=== PATIENT | male | born 1945 | race Caucasian/White ===

== ENCOUNTER 2016-07-28 12:51 | Inpatient (IN) | payer OTHER ==
[~2016-07-28] VITALS: Ht 167.6 cm; Wt 81.2 kg
--- NOTE | ~2016-07-28 | HC ---
[facility] [place] [address] CONSULTATION Name: CONSTANZASCOTT Dimitry Room #: 308-P [facility] IN ..#: [id number] Admission: 07/28/16 Attend Phys: Laurie Sellers MD Discharge: Date of : 47 Report #: [id number] THIS REPORT FOR: //name// CC: Laurie Seguraromulo Tran DATE OF SERVICE: 07/29/2016 REASON FOR CONSULTATION: Acute kidney injury in this patient with a 20+ year history of diabetes mellitus, hypertension, and acute anemia. HISTORY OF PRESENT ILLNESS: This 71-year-old male reports that he was diagnosed with diabetes mellitus in 1995. His glucose has been relatively easy to control over the years. He has developed subsequent hypertension. He sustained a cerebrovascular accident that recovered virtually completely post event. The patient reports no prior history of known kidney abnormalities. Specifically, he denies gross hematuria, renal insufficiency, nephrolithiasis, or family history of renal disease. PAST MEDICAL HISTORY: Otherwise remarkable for dyslipidemia, hypertension, diabetes, and CVA. MEDICATIONS: On admission include glimepiride 4 mg daily, hydrochlorothiazide 12.5 mg daily, lisinopril 20 mg daily, lovastatin 40 mg daily, metformin b.i.d., and vitamin D 1000 units daily. ALLERGIES: No known drug allergies. FAMILY HISTORY: Remarkable for the absence of diabetes and chronic kidney disease. PERSONAL AND SOCIAL HISTORY: The patient does not smoke, use alcohol, or have any history of substance abuse. REVIEW OF SYSTEMS: Remarkable for the absence of peripheral edema. He denies lightheadedness, vertigo, loss of consciousness, shortness of breath, productive cough, or hemoptysis. He does report that his oral intake has been poor over the last 10 days due to anorexia. He denies nausea, vomiting, diarrhea, or constipation. He denies evidence of GI blood loss. PHYSICAL EXAMINATION: GENERAL: Reveals a well-developed, well-nourished male who is alert and cooperative, in no acute distress. VITAL SIGNS: Temperature 36.8, pulse 85, respirations 16, blood pressure 134/70, and O2 situation 96% on room. [address] [address] CONSULTATION Name: SCOTT APODACA Room #: 308-P [facility] IN .R.#: [id number] Admission: 07/28/16 Attend Phys: Laurie Sellers MD Discharge: Date of : 47 Report #: [id number] SKIN: Warm and dry. There is diminished turgor noted. There is no clubbing, cyanosis, edema, or adenopathy. HEENT: The head is normocephalic and atraumatic. The sclerae are white. The pharynx is benign. NECK: Supple. There is no JVD present. LUNGS: [place] are grossly clear to percussion and auscultation. CARDIOVASCULAR: Reveals a regular rate and rhythm without rub. ABDOMEN: Soft and nontender without palpable mass or organomegaly. NEUROLOGIC: Reveals the patient to be alert and cooperative with a nonfocal examination. LABORATORY STUDIES: Available at this time include sodium 139, potassium 3.2, chloride 105, CO2 of 26, BUN 22, creatinine 2.2, glucose 117, and albumin 2.6. White blood cell count 8100, hemoglobin 8.4, hematocrit 24.3, MCV 79.9, and platelet count 378,000. Urinalysis reveals clear yellow urine, specific gravity 1.010, pH 5.5, trace protein. ASSESSMENT: 1. Acute kidney injury with likely elements of both acute kidney injury secondary to prerenal azotemia and suspected chronic kidney disease due to his 20+ year history of diabetes mellitus. He is responded well to hydration thus far with a serum creatinine on presentation of 2.7 following to a value of 2.2 today. I would continue isotonic hydration with potassium supplementation. Renal ultrasound has been ordered. For purposes of completeness, serologic studies including FAUSTO, ANCA and serum free light chains will be obtained. 2. Diabetes mellitus of longstanding duration. 3. Severe anemia with microcytosis suggesting iron deficiency and chronic blood loss. We will check hemoccult. He reports that he had a colonoscopy done approximately [address] [facility]. If hemoccult positive, he will likely require repeat GI evaluation. 4. Dyslipidemia. 5. History of prior cerebrovascular accident with no evident residual neurologic deficit. Thank you very much for this consultation. Please see orders. We will follow with you. <ELECTRONICALLY SIGNED> By: Jt Rogel MD 07/29/16 1314 0941 1110 Jt Rogel MD /nt
--- NOTE | ~2016-07-28 | EKG ---
[address] [address] ELECTROCARDIOGRAM REPORT Name: SCOTT APODACA Room #: 308-P [facility] IN M.R.#: [id number] Admission: 07/28/16 Attend Phys: Laurie Sellers MD Discharge: 07/31/16 Date of : 47 Report #: [id number] THIS REPORT FOR: //name// [facility] ED Test Date: 2016-07-28 Test Time: 13:40:05 Pat Name: SCOTT APODACA Department: Room: [facility] Gender: M [employer] Supervisor: marie : 1945 Requested By: Ed Mcdaniel Order Number: [id number] MD: Boston John Measurements Intervals [place] Rate: 75 P: 28 WA: 225 QRS: 88 QRSD: 96 T: 52 QT: 426 QTc: 476 Interpretive Statements Sinus rhythm Prolonged WA interval Borderline right axis deviation Low voltage, extremity leads Abnormal R-wave progression, early transition Electronically Signed On 08-01-2016 12:34:04 CDT by Boston John [email or web address] <ELECTRONICALLY SIGNED> By: Boston John MD 08/01/16 1234 1340 1340 Boston John MD /EPI
--- NOTE | ~2016-07-28 | H ---
[facility] [place] [address] HISTORY AND PHYSICAL Name: CONSTANZASCOTT Dimitry Room #: 308-P [facility] IN ..#: [id number] Admission: 07/28/16 Attend Phys: Laurie Sellers MD Discharge: 07/31/16 Date of : 47 Report #: [id number] THIS REPORT FOR: //name// CC: Laurie Seguraromulo Tran DATE OF SERVICE: 07/28/2016 HISTORY OF PRESENT ILLNESS: The patient is a 71-year-old man with history of hypertension, diabetes mellitus type 2 and history of stroke, who was told by primary care physician to come to the hospital for further evaluation of anemia. The patient states that his hemoglobin was 7.9. He denies any bleeding. While here, his hemoglobin was found to be 9.5. In the emergency room, the patient had rectal examination, and reportedly stool for Hemoccult was negative. The patient states that he has been feeling weak for 10 days or so, that has progressively worsened. He denies chest pains, shortness of breath, cough, fever, chills, or other symptoms. In the emergency room, the patient was also found to have elevated creatinine of 2.7. The patient denies history of kidney failure. We do not have his recent baseline, but in 2009, his kidney function was normal. PAST MEDICAL HISTORY: 1. Hypertension. 2. Diabetes mellitus type 2. 3. Dyslipidemia. 4. History of cerebrovascular accident. CURRENT MEDICATIONS: The patient is on glimepiride 4 mg a day, hydrochlorothiazide 12.5 mg a day, lisinopril 20 mg a day, lovastatin 40 mg a day, metformin does not specified, and vitamin D 1000 units a day. FAMILY HISTORY: Reviewed and not pertinent to the patient's current condition. SOCIAL HISTORY: The patient does not smoke cigarettes and does not drink alcohol. REVIEW OF SYSTEMS: As above in HPI section, all others negative. PHYSICAL EXAMINATION: GENERAL: The patient is an elderly man who looks tired. VITAL SIGNS: His blood pressure is 130/63, heart rate is 76, respiration is 14, and temperature is 98.3. HEENT: Pupils are equal. Eye movements are normal. The patient has anicteric sclerae. [address] [address] HISTORY AND PHYSICAL Name: SCOTT APODACA Room #: 308-P [facility].#: [id number] Admission: 07/28/16 Attend Phys: Laurie Sellers MD Discharge: 07/31/16 Date of : 47 Report #: [id number] NECK: Supple. Neck lymphadenopathy is not palpated. The patient has no thyromegaly. JVD is not appreciated. RESPIRATORY: Chest moves symmetrically with breathing. Lungs are clear to auscultation bilaterally. The patient has coarse respiratory sounds. Wheezing or crackles are not appreciated. CARDIOVASCULAR: The patient has regular rhythm and rate. He has no murmurs, gallops, or rubs. GASTROINTESTINAL: Abdomen is soft, nondistended and nontender. Hepatomegaly or splenomegaly is not palpated. NEUROLOGIC: The patient is alert and oriented x3. His examination is nonfocal. SKIN: Skin is pale. Skin is dry and warm. Skin lesions are not appreciated. LABORATORY DATA: On CBC, white count is normal. Hemoglobin is 9.5. In 2010, hemoglobin was 13.3. Platelets are high at 485. MCV is low normal at 80. Segments 73%. Monocytes are 9.8. Urinalysis shows white blood cells between 16 and 25. Leuk esterase is positive. On metabolic profile, creatinine is high at 2.7, from 1.2 in 2010. Albumin is 2.3. Troponin is undetectable. Liver function tests are otherwise normal. Electrolytes are normal. Chest x-ray is not available. ASSESSMENT AND PLAN: This is a 71-year-old man who comes to the hospital with , anemia, with current hemoglobin of 9.5. He is also found to have renal failure. 1. Acute renal failure. Again, recent baseline is not available to us, but reportedly, the patient has no kidney problems. This could be secondary to dehydration due to diminished p.o. intake recently, but there is no clear cause of dehydration. The patient is started on IV fluids, that will be continued. Lisinopril and hydrochlorothiazide will be held for the time being. 2. Anemia. Hemoglobin 9.5. Recent baseline is unknown. Per the patient, his hemoglobin was normal in the past, and recently with his primary care physician, hemoglobin was 7.9. became reason for referral to the emergency room. The patient's MCV is low normal. Stool guaiac is negative per emergency room evaluation. We will order iron studies, as well as check folate and vitamin B12 level. 3. Generalized weakness, likely due to above. We will request physical therapist evaluation. Again, we are checking B12, iron studies, folate as well as we will check TSH. 4. Hypertension. Acceptable control. As noted, lisinopril and hydrochlorothiazide will be held for now until renal failure resolves. 5. Diabetes mellitus type 2, unclear control. Glimepiride will be continued [address] [address] HISTORY AND PHYSICAL Name: SCOTT APODACA Room #: 308-P [facility] IN .R.#: [id number] Admission: 07/28/16 Attend Phys: Laurie Sellers MD Discharge: 07/31/16 Date of : 47 Report #: [id number] unchanged. Metformin will be held. We will use sliding scale Humalog. 6. Deep venous thrombosis prophylaxis. Renally adjusted subcutaneous Lovenox. <ELECTRONICALLY SIGNED> By: Laurie Sellers MD 08/02/16 1351 1721 1800 Laurie Sellers MD /nt
[2016-07-28 12:51] VITALS: BP 112/65
[~2016-07-28 12:51] MED LIST: ACTOS 45 MG45 M1 PO; ADULT LOW DOSE81 MG PO; AMARYL4 MG PO; AZITHROMYCIN 2250 MG PO; CARVEDILOL25 MG PO; GLUCOPHAGE PO; HYDROCHLOROTH12.5 MG PO; LISINOPRIL20 MG PO; MECLIZINE HCL25 M1 PO; MEVACOR40 MG PO; OCUVITE EXTRA1 EACH PO; VITAMIN B12 5500 MC1 PO; VITAMIN D1000 UNI1 PO
[2016-07-28 13:09] LABS: ABSOLUTE NEUTROPHILS 6.4 thou/uL (1.4-8.2); BASOPHILS 0.7 % (0.0-2.0); EOSINOPHILS 1.1 % (0.0-3.0); HEMATOCRIT 27.9 % (42.0-52.0); HEMOGLOBIN 9.5 gm/dL (14.0-18.0); LYMPHOCYTES 14.1 % (24.0-44.0); MCH 27.4 pg (26.0-34.0); MCHC 34.2 g/dL (28.0-37.0); MCV 80.1 fL (80.0-100.0); MONOCYTES 9.8 % (1.0-8.0); PLATELET COUNT 485 thou/uL (150-400); POLYS 74.3 % (36.0-66.0); RBC 3.49 mil/uL (4.50-6.00); WBC 8.6 thou/uL (4.0-11.0)
[2016-07-28 13:10] LABS: MANUAL DIFF NO
[2016-07-28 13:21] LABS: ANION GAP 12 mmol/L (7-16); BUN 27 mg/dL (7-18); CALCIUM 9.1 mg/dL (8.5-10.1); CHLORIDE 98 mmol/L (98-107); CO2 26 mmol/L (21-32); CREATININE 2.7 mg/dL (0.6-1.3); GLUCOSE 181 mg/dL (70-99); POTASSIUM 3.6 mmol/L (3.5-5.1); SODIUM 136 mmol/L (136-145)
[2016-07-28 13:24] LABS: INR 1.1; PROTIME 11.6 Seconds (9.3-11.4)
[2016-07-28 13:29] LABS: ALBUMIN 2.6 g/dL (3.4-5.0); ALKALINE PHOSPHATASE 77 U/L (46-116); SGOT 16 U/L (15-37); SGPT 31 U/L (30-65); TOTAL BILIRUBIN 0.2 mg/dL (<0.1-1.0); TOTAL PROTEIN 7.3 g/dL (6.4-8.2); TROPONIN-I < 0.04 ng/mL (<0.04-0.07)
[2016-07-28 14:22] LABS: URINE BILIRUBIN NEGATIVE (Negative); URINE BLOOD 1+ (Negative); URINE COLOR YELLOW; URINE GLUCOSE-RANDOM* NEGATIVE (Negative); URINE KETONES NEGATIVE (Negative); URINE NITRITE NEGATIVE (Negative); URINE PROTEIN (DIPSTICK) TRACE (Negative); URINE UROBILINOGEN 0.2 E.U./dl (0.2-1.0)
[2016-07-28 14:32] LABS: AMORPHOUS URATES Few /LPF (None Seen); BACTERIA 1-9 Few /HPF (None Seen); CASTS None Seen /LPF (None Seen); SQUAMOUS 0-3 Few /LPF (0-3); URINE RBC 3-10 Few /HPF (0-2)
[2016-07-28 14:44] VITALS: BP 130/63
[2016-07-28 17:43] LABS: % SATURATION 18 % (20-39); IRON 33 ug/dL (65-175); TIBC 184 ug/dL (250-450); UIBC 151 ug/dL
[2016-07-28 18:11] LABS: FOLIC ACID 12.9 ng/mL (8.6-58.9); TSH 0.595 uIU/mL (0.358-3.740)
[2016-07-28 19:15] VITALS: BP 174/69
[2016-07-29 00:02] VITALS: BP 139/67
[2016-07-29 03:29] VITALS: BP 170/74
[2016-07-29 05:33] LABS: ABSOLUTE NEUTROPHILS 5.9 thou/uL (1.4-8.2); BASOPHILS 0.7 % (0.0-2.0); EOSINOPHILS 1.5 % (0.0-3.0); HEMATOCRIT 24.3 % (42.0-52.0); HEMOGLOBIN 8.4 gm/dL (14.0-18.0); LYMPHOCYTES 14.9 % (24.0-44.0); MCH 27.7 pg (26.0-34.0); MCHC 34.6 g/dL (28.0-37.0); MCV 79.9 fL (80.0-100.0); MONOCYTES 9.6 % (1.0-8.0); POLYS 73.3 % (36.0-66.0); RBC 3.04 mil/uL (4.50-6.00); RDW 13.9 % (10.5-14.5); WBC 8.1 thou/uL (4.0-11.0)
[2016-07-29 05:41] LABS: PLATELET COUNT 378 thou/uL (150-400)
[2016-07-29 05:42] LABS: MANUAL DIFF NO
[2016-07-29 05:48] LABS: CALCIUM 8.3 mg/dL (8.5-10.1); CREATININE 2.2 mg/dL (0.6-1.3); POTASSIUM 3.2 mmol/L (3.5-5.1)
[2016-07-29 08:00] VITALS: BP 134/70
[2016-07-29 12:00] VITALS: BP 111/63
[2016-07-29 16:00] VITALS: BP 133/66
[2016-07-29 19:53] VITALS: BP 146/78
[2016-07-30] VITALS (7 sets, daily range): BP systolic 102–168; BP diastolic 45–83
[2016-07-30 05:56] LABS: HEMATOCRIT 26.1 % (42.0-52.0); HEMOGLOBIN 8.9 gm/dL (14.0-18.0); MCH 27.4 pg (26.0-34.0); MCHC 34.1 g/dL (28.0-37.0); MCV 80.5 fL (80.0-100.0); RBC 3.24 mil/uL (4.50-6.00); RDW 14.4 % (10.5-14.5); WBC 10.6 thou/uL (4.0-11.0)
[2016-07-30 06:19] LABS: ALBUMIN 2.3 g/dL (3.4-5.0); CALCIUM 8.5 mg/dL (8.5-10.1); PHOSPHORUS 3.2 mg/dL (2.5-4.9); POTASSIUM 4.1 mmol/L (3.5-5.1)
[2016-07-31 03:50] VITALS: BP 150/83
[2016-07-31 05:57] LABS: ALBUMIN 2.3 g/dL (3.4-5.0); CALCIUM 8.7 mg/dL (8.5-10.1); PHOSPHORUS 3.4 mg/dL (2.5-4.9); POTASSIUM 3.7 mmol/L (3.5-5.1)
[2016-07-31 07:52] VITALS: BP 135/77
[2016-07-31 12:06] VITALS: BP 132/65
[2016-07-31 12:10] LABS: KAPPA FREE LIGHT CHAINS 74.37 mg/L (3.30-19.40); KAPPA/LAMBDA RATIO 1.75 (0.26-1.65); LAMBDA FREE LIGHT CHAINS 42.61 mg/L (5.71-26.30)
[2016-07-31] MEDS ORDERED: FERROUS SULFAT324 M1 PO (12:51)
[2016-07-31 14:07] VITALS: BP 132/65
[2016-08-01 16:08] LABS: c-ANCA <1:20 titer (Neg:<1:20); p-ANCA <1:20 titer (Neg:<1:20)
== END 2016-07-31 16:39 | disposition home or self-care (01) | DRG 682 ==
LOC: ER 12:51 → 3N 13:40 → EROBS 13:40 → 3N 14:16
PROVIDERS: Internal Medicine; Internal Medicine Endocrinology, Diabetes & Metabolism; Internal Medicine Nephrology; Physician Assistant
DX: N17.9 Acute kidney failure, unspecified (principal); E43 Unspecified severe protein-calorie malnutrition; N18.9 Chronic kidney disease, unspecified; R39.2 Extrarenal uremia; I12.9 Hypertensive chronic kidney disease with stage 1 through stage 4 chronic kidney disease, or unspecified chronic kidney disease; E11.22 Type 2 diabetes mellitus with diabetic chronic kidney disease; E78.5 Hyperlipidemia, unspecified; D50.9 Iron deficiency anemia, unspecified; E87.6 Hypokalemia; Z86.73 Personal history of transient ischemic attack (TIA), and cerebral infarction without residual deficits; Z88.0 Allergy status to penicillin; Z88.2 Allergy status to sulfonamides; Z68.28 Body mass index [BMI] 28.0-28.9, adult; Z79.899 Other long term (current) drug therapy
CPT/HCPCS: 10096